=== PATIENT | female | born 1990 | race Caucasian/White ===

== ENCOUNTER 2018-01-27 22:06 | Emergency (ER) | payer MEDICAID ==
[~2018-01-27] VITALS: Ht 177.8 cm; Wt 77.1 kg
[2018-01-27 22:27] VITALS: BP_SYST 123
[2018-01-27] MEDS ORDERED: LIDOCAINE MPF 1% 50 MG/5 ML AMP INJ ONE (23:45)
[2018-01-28] MEDS ORDERED: LIDOCAINE 1% 10 MG/ML, 20 ML MDV INJ ONE
[2018-01-28] MEDS ORDERED: LIDOCAINE 1%, 20 ML MDV 0 ML ONE (00:03)
[2018-01-28 00:53] LABS: BILIRUBIN,URINE NEGATIVE (NEGATIVE); BLOOD, URINE NEGATIVE (NEGATIVE); CLARITY/URINE CLOUDY (CLEAR); COLOR,URINE YELLOW (YELLOW); GLUCOSE,URINE NEGATIVE (NEGATIVE); KETONES,URINE NEGATIVE (NEGATIVE); LEUKOCYTE ESTERASE ,URINE NEGATIVE (NEGATIVE); NITRITE, URINE POSITIVE (NEGATIVE); PH,URINE 6.5 (5.0-8.0); PROTEIN URINE NEGATIVE (NEGATIVE); UROBILINOGEN,URINE 0.2 (0.2-1.0)
[2018-01-28 00:57] LABS: BACTERIA,URINE MANY /HPF (None Seen); MUCUS,URINE None Seen /LPF (None Seen); RBC,URINE 0-3 /HPF (0-3)
[2018-01-30 00:51] LABS: CHLAMYDIA TRACHOMATIS NAA Negative (Negative); NEISSERIA GONORRHOEAE NAA Negative (Negative)
== END 2018-01-28 01:19 | disposition left against medical advice (07) ==
LOC: SED 22:06
DX: N39.0 Urinary tract infection, site not specified (principal); N17.9 Acute kidney failure, unspecified; I10 Essential (primary) hypertension; F17.210 Nicotine dependence, cigarettes, uncomplicated; Z53.20 Procedure and treatment not carried out because of patient's decision for unspecified reasons; Z90.49 Acquired absence of other specified parts of digestive tract
CPT/HCPCS: 81000-TC; 81025; 87086; 87491; 87591; 99284; J2001

== ENCOUNTER 2020-03-22 19:17 | Emergency (ER) | payer MEDICAID, OTHER ==
[~2020-03-22] VITALS: Ht 177.8 cm; Wt 69.9 kg
[2020-03-22 19:29] VITALS: BP_SYST 125
[2020-03-22 21:26] VITALS: BP_SYST 125
== END 2020-03-22 21:26 | disposition home or self-care (01) ==
LOC: SED 19:17
DX: K02.9 Dental caries, unspecified (principal)
CPT/HCPCS: 99283